=== PATIENT | male | born 1945 | race African-American/Black ===

== ENCOUNTER 2022-05-24 02:05 | Inpatient (IN) | payer OTHER ==
[2022-05-24] VITALS (67 sets, daily range): BP systolic 26–243; BP diastolic 14–122
[~2022-05-24] VITALS: Ht 180.3 cm; Wt 64.0 kg
[2022-05-24] MEDS ORDERED: ALBUTEROL (0.083%) 2.5MG/3ML NEB HHN STA (02:18)
[2022-05-24] MEDS ORDERED: IPRATROPIUM BROMIDE (0.02%) 0.5MG/2.5ML NEB HHN STA (02:18)
[2022-05-24] MEDS ORDERED: METHYLPREDNISOLONE SOD SUCC 125 MG/2 ML VIAL IV STA (02:18)
[2022-05-24] MEDS ORDERED: MAGNESIUM 2 G PREMIX 50 ML IV STA (02:18)
[2022-05-24] MEDS ORDERED: CALCIUM GLUCONATE 100MG/ML 10ML VIAL IV ONE (02:30)
[2022-05-24] MEDS ORDERED: ASPIRIN 81MG TABLET PO ONE (02:30)
[2022-05-24] MEDS ORDERED: CEFTRIAXONE 1 G PREMIX 50 ML IV ONE (03:15)
[2022-05-24] MEDS ORDERED: PROPOFOL 10MG/ML 100ML 100 ML IV SCH (03:15)
[2022-05-24] MEDS ORDERED: AZITHROMYCIN 500 MG in DEXT 5% WATER 250 ML IV SCH (03:15)
[2022-05-24 04:44] LABS: BG CARBOXYHEMOGLOBIN 0.3 % (0.5-1.5); BG DEOXYHEMOGLOBIN 5.5 % (0.0-5.0); BG FRACTION INSPIRED OXYGEN 100; BG HCO3 ACT 9.4 mmol/L (22.0-26.0); BG METHEMOGLOBIN 0.6 % (0.0-1.5); BG OXYGEN SATURATION 94.5 % (92.0-98.5); BG OXYHEMOGLOBIN 93.6 % (94.0-97.0); BG PCO2 61.9 mmHg (35.0-45.0); BG PH 6.801 (7.350-7.450); BG PO2 126.8 mmHg (75.0-100.0); BG SAMPLE SITE LEFT FEMORAL; BG TOTAL HEMOGLOBIN 11.5 g/dL (12.0-18.0); BG VENT MODE VENT - AC
[2022-05-24 04:53] LABS: HEMATOCRIT. 34.2 % (42.0-52.0); HEMOGLOBIN. 10.1 g/dL (14.0-18.0); MEAN CORPUSCULAR HEMOGLOBIN 30.2 pg (28.0-32.0); MEAN CORPUSCULAR VOLUME 101.8 fL (80.0-94.0); MEAN PLATELET VOLUME 10.9 fl (7.4-10.4); PLATELET 258 x1000/uL (130-400); RED BLOOD CELL COUNT 3.36 mill/uL (4.7-6.1); RED CELL DISTRIBUTION WIDTH 17.5 % (11.6-14.6)
[2022-05-24] MEDS ORDERED: SODIUM CHLORIDE 0.9% 1000ML BAG (SEPSIS BOLUS) IV ONE (05:15)
[2022-05-24 05:24] LABS: CHLORIDE 110 mEq/L (98-107)
[2022-05-24 05:34] LABS: ETHANOL BLOOD < 10 mg/dL
[2022-05-24] MEDS ORDERED: ASPIRIN 300MG SUPP PR NR (05:45)
[2022-05-24] MEDS ORDERED: DEXTROSE 50% WATER 50ML SYRINGE IV ONE ×3 (06:30→08:30)
[2022-05-24] MEDS ORDERED: DEXT 5%/LACTATED RINGERS 1,000 ML IV SCH (07:15)
[2022-05-24] MEDS ORDERED: DOCUSATE SODIUM 100MG CAPSULE PO PRN (07:15)
[2022-05-24] MEDS ORDERED: GUAIFENESIN 200MG/10ML SUGAR FREE UDC PO PRN (07:15)
[2022-05-24] MEDS ORDERED: ACETAMINOPHEN 325MG TABLET PO PRN ×2 (07:15)
[2022-05-24] MEDS ORDERED: IPRATROPIUM/ALBUTEROL 0.5-3(2.5)MG/3ML NEB NEB PRN (07:15)
[2022-05-24] MEDS ORDERED: ONDANSETRON HCL 4MG/2ML INJ IV PRN (07:15)
[2022-05-24] MEDS ORDERED: MAGNESIUM/ALUMINUM HYDROXIDE/SIMETHICONE 30ML UDC PO PRN (07:15)
[2022-05-24] MEDS ORDERED: CLONIDINE 0.1MG TABLET PO PRN (07:15)
[2022-05-24] MEDS ORDERED: PIPERACILLIN/TAZ 3.375G PREMIX 50 ML IV SCH (07:15)
[2022-05-24] MEDS ORDERED: PIPERACILLIN/TAZ 3.375G PREMIX 50 ML IV NR (07:30)
[2022-05-24] MEDS ORDERED: SODIUM BICARBONATE 8.4% 1 MEQ/ML 50ML SYR IV SCH (07:45)
[2022-05-24] MEDS ORDERED: NOREPINEPHRINE 32 MG in DEXT 5% WATER 218 ML IV PRN (07:45)
[2022-05-24 08:04] LABS: BG BASE EXCESS -28.2 mmol/L (-2.0-2.0); BG CARBOXYHEMOGLOBIN 0.3 % (0.5-1.5); BG DEOXYHEMOGLOBIN 1.1 % (0.0-5.0); BG HCO3 ACT 5.3 mmol/L (22.0-26.0); BG METHEMOGLOBIN 0.1 % (0.0-1.5); BG OXYGEN SATURATION 98.9 % (92.0-98.5); BG OXYHEMOGLOBIN 98.5 % (94.0-97.0); BG PCO2 36.9 mmHg (35.0-45.0); BG PH 6.771 (7.350-7.450); BG PO2 255.8 mmHg (75.0-100.0); BG SAMPLE SITE RIGHT FEMORAL; BG TOTAL HEMOGLOBIN 8.4 g/dL (12.0-18.0); BG VENT MODE VENT - AC
[2022-05-24] MEDS ORDERED: PHENYLEPHRINE 100 MG in DEXT 5% WATER 240 ML IV PRN (08:15)
[2022-05-24 08:18] LABS: ATYPICAL LYMPHOCYTES 1; PLATELET ESTIMATE NORMAL
[2022-05-24] MEDS ORDERED: LIDOCAINE HCL 1% 30ML VIAL (10MG/ML) ONE (08:21)
[2022-05-24] MEDS ORDERED: ETOMIDATE 2MG/ML 10ML VIAL IV ONE (08:26)
[2022-05-24] MEDS ORDERED: SODIUM CHLORIDE 0.9% 10ML VIAL ONE (08:26)
[2022-05-24] MEDS ORDERED: VECURONIUM BROMIDE 10 MG/VIAL IV ONE (08:26)
[2022-05-24] MEDS ORDERED: CALCIUM CHLORIDE 1GM/10ML SYR IV ONE ×2 (08:28→08:30)
[2022-05-24] MEDS ORDERED: EPINEPHRINE 0.1MG/ML (1:10,000) 10ML SYR ONE ×2 (08:28→08:30)
[2022-05-24] MEDS ORDERED: SODIUM BICARBONATE 8.4% 1 MEQ/ML 50ML SYR IV ONE ×2 (08:28→08:30)
[2022-05-24] MEDS ORDERED: VANCOMYCIN 1G PREMIX 200 ML IV NR ×2 (08:30→15:45)
[2022-05-24] MEDS ORDERED: LIDOCAINE HCL 2% 5ML SYRINGE IV ONE (08:30)
[2022-05-24] MEDS ORDERED: SODIUM BICARBONATE 150 MEQ in DEXTROSE 5% WATER 1,000 ML IV SCH ×2 (08:45→21:00)
[2022-05-24] MEDS ORDERED: PANTOPRAZOLE SODIUM 40 MG/VIAL IV SCH (09:00)
[2022-05-24] MEDS ORDERED: ASPIRIN 325MG EC TABLET PO SCH (09:00)
[2022-05-24] MEDS ORDERED: ENOXAPARIN 30MG/0.3ML SYR SUBCUT SCH (09:00)
[2022-05-24 09:22] LABS: HDL CHOLESTEROL 12 mg/dL (40-59); LDL CHOLESTEROL 17 mg/dL (5-100); T4 FREE 0.83 ng/dL (0.76-1.46); TOTAL IRON BINDING CAPACITY 300 ug/dL (250-450)
[2022-05-24 09:52] LABS: D-DIMER 19.39 mg/L FEU (<0.50); PROTHROMBIN TIME 19.9 sec (9.6-11.0)
[2022-05-24] MEDS: PHENYLEPHRINE 100 MG in DEXT 5% WATER 240 ML IV PRN ×2 (10:28→17:18)
[2022-05-24] MEDS ORDERED: VANCOMYCIN 1GM PMX (XELLIA) 200 ML IV NR (10:30)
[2022-05-24] MEDS ORDERED: PIPERACILLIN/TAZOBACTAM 3.375 G in DEXTROSE 5% WATER 50 ML IV NR (10:30)
[2022-05-24] MEDS ORDERED: SODIUM CHLORIDE 0.9% 1000ML BAG (SEPSIS BOLUS) IV NR (10:45)
[2022-05-24] MEDS ORDERED: VASOPRESSIN 20 UNIT in SODIUM CHLORIDE 0.9% 99 ML IV PRN (12:45)
[2022-05-24] MEDS: EPINEPHRINE 10 MG in SODIUM CHLORIDE 0.9% 240 ML IV PRN ×4 (12:46→20:44)
[2022-05-24 12:47] LABS: BG BASE EXCESS -21.1 mmol/L (-2.0-2.0); BG CARBOXYHEMOGLOBIN 0.2 % (0.5-1.5); BG DEOXYHEMOGLOBIN 0.3 % (0.0-5.0); BG FRACTION INSPIRED OXYGEN 100; BG HCO3 ACT 8.6 mmol/L (22.0-26.0); BG METHEMOGLOBIN 0.1 % (0.0-1.5); BG OXYGEN SATURATION 99.7 % (92.0-98.5); BG OXYHEMOGLOBIN 99.4 % (94.0-97.0); BG PCO2 36.7 mmHg (35.0-45.0); BG PO2 374.9 mmHg (75.0-100.0); BG SAMPLE SITE LEFT RADIAL; BG TOTAL HEMOGLOBIN 6.9 g/dL (12.0-18.0); BG VENT MODE VENT - AC
[2022-05-24] MEDS: NOREPINEPHRINE 32 MG in DEXT 5% WATER 218 ML IV PRN ×3 (13:00→18:32)
[2022-05-24] MEDS ORDERED: DEXTROSE 50% WATER 50ML SYRINGE IV PRN (13:20)
[2022-05-24] MEDS ORDERED: DEXTROSE 10% WATER 500 ML IV NR (13:20)
[2022-05-24] MEDS ORDERED: ENOXAPARIN 30MG/0.3ML SYR SUBCUT NR (13:30)
[2022-05-24] MEDS: IPRATROPIUM/ALBUTEROL 0.5-3(2.5)MG/3ML NEB HHN SCH ×2 (15:58→20:25)
[2022-05-24] MEDS ORDERED: DOPAMINE 800MG PREMIX (DOUBLE) 250 ML IV PRN (17:30)
[2022-05-24 18:44] LABS: CREATINE KINASE MB FRACTION 23.5 ng/mL (0.5-3.6)
[2022-05-24] MEDS ORDERED: PIPERACILLIN/TAZOBACTAM 3.375 G in DEXTROSE 5% WATER 50 ML IV SCH ×4 (21:00)
[2022-05-25 02:48] LABS: FOLIC ACID (FOLATE) SERUM 16.5 ng/mL (>5.38)
[2022-05-25] MEDS ORDERED: ASPIRIN 325MG EC TABLET PO SCH (09:00)
[2022-05-25] MEDS ORDERED: ENOXAPARIN 60MG/0.6ML SYR SUBCUT SCH (09:00)
== END 2022-05-25 03:00 | DRG 871 ==
LOC: ER 02:05 → EDBD 04:31 → CVICU 04:31 → EDBEDREQSVC 04:37 → EDBEDREQ 04:37 → EDBEDREQTM 04:37 → CVICU 09:11
PROVIDERS: ADMIT Internal Medicine; ATTEND Internal Medicine
PROC: 5A1935Z Respiratory Ventilation, Less than 24 Consecutive Hours (ICD-10-PCS; principal; 2022-05-24)
PROC: 0BH17EZ Insertion of Endotracheal Airway into Trachea, Via Natural or Artificial Opening (ICD-10-PCS; 2022-05-24)
PROC: 5A12012 Performance of Cardiac Output, Single, Manual (ICD-10-PCS; 2022-05-24)
PROC: 06HY33Z Insertion of Infusion Device into Lower Vein, Percutaneous Approach (ICD-10-PCS; 2022-05-24)
PROC: 5A2204Z Restoration of Cardiac Rhythm, Single (ICD-10-PCS; 2022-05-24)
PROC: 5A09357 Assistance with Respiratory Ventilation, Less than 24 Consecutive Hours, Continuous Positive Airway Pressure (ICD-10-PCS; 2022-05-24)
DX: A41.9 Sepsis, unspecified organism (principal); G93.41 Metabolic encephalopathy; J96.01 Acute respiratory failure with hypoxia; R65.21 Severe sepsis with septic shock; I21.A1 Myocardial infarction type 2; J18.9 Pneumonia, unspecified organism; N17.9 Acute kidney failure, unspecified; I82.412 Acute embolism and thrombosis of left femoral vein; I82.432 Acute embolism and thrombosis of left popliteal vein; J44.0 Chronic obstructive pulmonary disease with (acute) lower respiratory infection; I48.91 Unspecified atrial fibrillation; I44.7 Left bundle-branch block, unspecified; I46.9 Cardiac arrest, cause unspecified; I49.01 Ventricular fibrillation; Z20.822 Contact with and (suspected) exposure to COVID-19
CPT/HCPCS: 31500; 36415; 36600; 71045; 76770; 80053; 80061; 80320; 82375; 82550; 82553; 82607; 82746; 82805; 82962; 83036; 83540; 83550; 83605; 83880; 84145; 84439; 84443; 84484; 85025; 85379; 87070; 87077; 87186; 87426; 93005; 93306; 93970; 94640; 94660; 99291; C9113; C9803; J0456; J0610; J0696; J1265; J1650; J2370; J2543; J2704; J2930; J3370; J3475; J3490; J7050; J7060; J7070; G0480